=== PATIENT | female | born 1945 | race Caucasian/White ===

== ENCOUNTER 2018-03-26 13:02 | Emergency (ER) | payer MEDICARE, BC ==
--- NOTE | 2018-03-26 13:29 | EDM.PDOC ---
ED HPI GENERAL MEDICAL PROBLEM - General Chief Complaint: Chest Pain Stated Complaint: CHEST PAIN, SOB Time Seen by Provider: 03/26/18 13:15 Source of Information: Reports: Patient History Limitations: Reports: No Limitations - History of Present Illness INITIAL COMMENTS - FREE TEXT/NARRATIVE: 72-year-old female with known atrial fibrillation who had right knee surgery a month and a half ago and has been healing fine is struggling with 4 days of shortness of breath, especially with activity. She has not missed any of her medications, her last INR was 3.0 2 weeks ago. She has some lower chest pressure intermittent but no true pain, her chief complaint is shortness of breath especially with activity. She went into the clinic to discuss her symptoms and they sent her to the emergency room. Onset: Gradual (Over the past 4 days) Location: Reports: Chest Severity: Moderate Worsens with: Reports: Other (Activity causes increased shortness of breath) Associated Symptoms: Reports: Shortness of Breath. Denies: Chest Pain, Cough, Nausea/Vomiting Chest Pain Score (Numeric/FACES): 4 - Related Data Allergies Allergy/AdvReac Type Severity Reaction Status Date / Time tramadol AdvReac Nausea Verified 03/26/18 13:29 Home Meds: Home Meds Bimatoprost [Lumigan 0.01% Ophth Soln] 5 ml TOP BEDTIME 03/26/18 [History] Dorzolamide [Trusopt 2% Ophth Soln] 10 ml OP DAILY 03/26/18 [History] Gabapentin [Neurontin] 300 mg PO DAILY 03/26/18 [History] Insulin Degludec [Tresiba Flextouch U-100] 28 unit SQ BEDTIME 03/26/18 [History] Losartan Potassium 100 mg PO DAILY 03/26/18 [History] Metoprolol Tartrate 100 mg PO BID 03/26/18 [History] Pantoprazole [ProTONIX] 40 mg PO DAILY 03/26/18 [History] Potassium Chloride 10 meq PO DAILY 03/26/18 [History] SitaGLIPtin [Januvia] 100 mg PO DAILY 03/26/18 [History] Timolol Maleate [Timoptic 0.25%] 10 ml TOP BID 03/26/18 [History] Triamterene/Hydrochlorothiazid [Triamterene-HCTZ 37.5-25 MG] 1 each PO DAILY [History] Warfarin [Coumadin] 2.5 mg PO DAILY 03/26/18 [History] Warfarin [Coumadin] 5 mg PO DAILY 03/26/18 [History] amLODIPine Besylate [Amlodipine Besylate] 5 mg PO DAILY 03/26/18 [History] ED ROS GENERAL - Review of Systems Review Of Systems: See Below Constitutional: Denies: Fever, Chills HEENT: Reports: No Symptoms Respiratory: Reports: Shortness of Breath. Denies: Cough Cardiovascular: Reports: Edema (She has significant lower extremity edema which is somewhat worse than her baseline). Denies: Chest Pain (Describes an intermittent mild pressure but no pain) GI/Abdominal: Denies: Abdominal Pain, Nausea, Vomiting Musculoskeletal: Reports: Other (Right knee surgery is healing well) Skin: Denies: Bruising, Erythema Neurological: Reports: No Symptoms Psychiatric: Reports: No Symptoms ED EXAM, GENERAL - Physical Exam Exam: See Below Exam Limited By: No Limitations General Appearance: Alert, No Apparent Distress, Anxious Respiratory/Chest: No Respiratory Distress, Lungs Clear Cardiovascular: Irregularly Irregular. No: Tachycardia GI/Abdominal: Other (Abdomen is morbidly obese, nontender) Extremities: Other (She has a well-healed surgical scar on the anterior right knee. She has 2+ pitting edema distally in both lower extremities) Neurological: Alert, Oriented Psychiatric: Normal Affect, Normal Mood Skin Exam: Warm, Dry EKG INTERPRETATION Rhythm: A-Fib Rate (Beats/Min): 83 ST-T: Normal Course - Vital Signs Last Recorded V/S: Last Vital Signs Temp 98.7 F 03/26/18 13:07 Pulse 61 03/26/18 15:22 Resp 20 03/26/18 15:22 BP 201/90 H 03/26/18 15:22 Pulse Ox 95 03/26/18 15:22 - Orders/Labs/Meds Orders: Active Orders 24 hr Category Date Time Status EKG Documentation Completion [RC] ASDIRECTED Care 03/26/18 13:30 Active Ang Chest [CT] Stat Exams 03/26/18 14:34 Taken EKG 12 Lead [EK] Routine Ther 03/26/18 13:30 Ordered Labs: Laboratory Tests 03/26/18 03/26/18 03/26/18 Range/Units 13:29 13:30 13:44 WBC 10.7 (4.5-11.0) K/uL RBC 3.55 (3.30-5.50) M/uL Hgb 10.7 L (12.0-15.0) g/dL Hct 35.0 L (36.0-48.0) % MCV 99 H (80-98) fL MCH 30 (27-31) pg MCHC 31 L (32-36) % Plt Count 356 (150-400) K/uL Neut % (Auto) 81 H (36-66) % Lymph % (Auto) 10 L (24-44) % [place] % (Auto) 8 H (2-6) % Eos % (Auto) 1 L (2-4) % Baso % (Auto) 0 (0-1) % PT (9.5-12.0) sec INR (0.80-1.20) D-Dimer, Quantitative 1120 H (0.0-400.0) ng/mL Sodium (140-148) mmol/L Potassium (3.6-5.2) mmol/L Chloride (100-108) mmol/L Carbon Dioxide (21-32) mmol/L Anion Gap (5.0-14.0) mmol/L BUN (7-18) mg/dL Creatinine (0.6-1.0) mg/dL Est Cr Clr Drug Dosing mL/min Estimated GFR (MDRD) (>60) Glucose (74-106) mg/dL Calcium (8.5-10.1) mg/dL Total Bilirubin (0.2-1.0) mg/dL AST (15-37) U/L ALT (12-78) U/L Alkaline Phosphatase (46-116) U/L Troponin I 0.060 H* (0.000-0.056) ng/mL Total Protein (6.4-8.2) g/dL Albumin (3.4-5.0) g/dL Globulin (2.3-3.5) g/dL Albumin/Globulin Ratio (1.2-2.2) 03/26/18 03/26/18 Range/Units 13:44 13:44 WBC (4.5-11.0) K/uL RBC (3.30-5.50) M/uL Hgb (12.0-15.0) g/dL Hct (36.0-48.0) % MCV (80-98) fL MCH (27-31) pg MCHC (32-36) % Plt Count (150-400) K/uL Neut % (Auto) (36-66) % Lymph % (Auto) (24-44) % [place] % (Auto) (2-6) % Eos % (Auto) (2-4) % Baso % (Auto) (0-1) % PT 39.8 H (9.5-12.0) sec INR 3.53 H (0.80-1.20) D-Dimer, Quantitative (0.0-400.0) ng/mL Sodium 144 (140-148) mmol/L Potassium 2.9 L* (3.6-5.2) mmol/L Chloride 107 (100-108) mmol/L Carbon Dioxide 27 (21-32) mmol/L Anion Gap 12.9 (5.0-14.0) mmol/L BUN 11 (7-18) mg/dL Creatinine 1.1 H (0.6-1.0) mg/dL Est Cr Clr Drug Dosing 37.93 mL/min Estimated GFR (MDRD) 49 L (>60) Glucose 190 H (74-106) mg/dL Calcium 8.2 L (8.5-10.1) mg/dL Total Bilirubin 1.3 H (0.2-1.0) mg/dL AST 21 (15-37) U/L ALT 19 (12-78) U/L Alkaline Phosphatase 95 (46-116) U/L Troponin I (0.000-0.056) ng/mL Total Protein 6.8 (6.4-8.2) g/dL Albumin 2.9 L (3.4-5.0) g/dL Globulin 3.9 H (2.3-3.5) g/dL Albumin/Globulin Ratio 0.7 L (1.2-2.2) Meds: Medications Discontinued Medications Generic Name Dose Route Start Last Admin Trade Name Freq PRN Reason Stop Dose Admin Sodium Chloride 1,000 mls @ 500 mls/hr 03/26/18 14:30 03/26/18 14:50 Normal Saline IV 500 mls/hr ASDIRECTED MELE Administration Sodium Chloride 90 mls @ 4 mls/sec 03/26/18 14:45 06/27/18 15:10 Normal Saline IV 4 mls/sec ASDIRECTED MELE Administration Iopamidol 100 ml 03/26/18 14:45 03/26/18 15:09 [id number] (76%) IV 100 ml . DIRECTED MELE Administration Sodium Chloride 10 ml 03/26/18 14:45 03/26/18 15:09 Saline Flush FLUSH 03/26/18 14:46 10 ml ONETIME ONE Administration - Re-Assessments/Exams Free Text/Narrative Re-Assessment/Exam: 03/26/18 16:44 CT of the chest was negative for PE but did confirm the pleural effusions. Patient will increase her Lasix to 40 mg twice days, and follow-up with her primary care early next week. Avoid any extra salt. Departure - Departure Time of Disposition: 17:31 Disposition: Home, Self-Care 01 Condition: Fair Clinical Impression: Congestive heart failure of unknown etiology - Discharge Information Instructions: Heart Failure, [id number] Referrals: PCP,None [Primary Care Provider] - Forms: ED Department Discharge Care Plan Goals: Increase Lasix to 40 mg twice a day. Return to regular dosage in 3 days. Avoid extra salt, and recheck with your regular doctor next week when home. - My Orders Last 24 Hours: My Active Orders 03/26/18 13:30 EKG Documentation Completion [RC] ASDIRECTED EKG 12 Lead [EK] Routine 03/26/18 14:34 Ang Chest [CT] Stat - Assessment/Plan Last 24 Hours: My Active Orders 03/26/18 13:30 EKG Documentation Completion [RC] ASDIRECTED EKG 12 Lead [EK] Routine 03/26/18 14:34 Ang Chest [CT] Stat
[2018-03-26] MEDS ORDERED: Sodium Chloride 0.9% 1,000 ML IV SCH (14:30)
--- NOTE | 2018-03-26 14:30 | CR ---
CHEST: 2 view CLINICAL HISTORY:Dyspnea COMPARISON:None FINDINGS: Heart size is mildly enlarged. Pulmonary vascularity is mildly cephalized. There is some i nterstitial prominence. No effusions are seen.. IMPRESSION: Masters cephalization with some interstitial prominence suggests changes of CHF
[2018-03-26] MEDS ORDERED: Sodium Chloride 0.9% 90 ML IV SCH (14:45)
[2018-03-26] MEDS ORDERED: Sodium Chloride 0.9% 10 ML Syringe FLUSH ONE (14:45)
[2018-03-26] MEDS ORDERED: Iopamidol 755 Mg/ML 100 ML Bottle IV SCH (14:45)
== END 2018-03-26 17:20 | disposition home or self-care (01) ==
LOC: JP.ED 13:02
DX: I50.9 Heart failure, unspecified (principal); I48.91 Unspecified atrial fibrillation; Z88.5 Allergy status to narcotic agent; Z79.899 Other long term (current) drug therapy; Z98.890 Other specified postprocedural states; Z79.01 Long term (current) use of anticoagulants
CPT/HCPCS: 36415; 71046; 71275; 80053; 84484; 85025; 85379; 85610; 93005; 96360; 96361; 99285; J7030; J7050; Q9967